=== PATIENT | female | born 1955 | race African-American/Black ===

== ENCOUNTER 2024-05-11 07:44 | Emergency (ER) | payer OTHER ==
[2024-05-11 09:29] LABS: Influenza A by NAA Not Detected (NotDetected); Influenza B by NAA Not Detected (NotDetected); SARS-CoV-2 NAA Rapid Test Not Detected (NotDetected)
== END 2024-05-11 09:46 | disposition home or self-care (01) ==
LOC: ERS 07:44
DX: J02.9 Acute pharyngitis, unspecified (principal)
CPT/HCPCS: 87081; 87430; 99283

== ENCOUNTER 2025-10-23 14:06 | Outpatient (CLI) | payer MEDICARE | END 2025-10-23 14:07 | disposition home or self-care (01) | LOC: BICMAMMO 14:06 | PROVIDERS: ATTEND Student in an Organized Health Care Education/Training Program | DX: Z13.820 Encounter for screening for osteoporosis (principal); Z78.0 Asymptomatic menopausal state | CPT/HCPCS: 77080 ==